=== PATIENT | male | born 1990 | race Caucasian/White ===

== ENCOUNTER 2018-12-08 18:45 | Emergency (ER) | payer BC ==
[~2018-12-08] VITALS: Ht 175.3 cm; Wt 80.7 kg
[2018-12-08 19:13] VITALS: BP 130/65; Ht 175.3 cm; Wt 80.7 kg
== END 2018-12-08 20:43 | disposition home or self-care (01) ==
LOC: ED 18:45
DX: S33.5XXA Sprain of ligaments of lumbar spine, initial encounter (principal); Z98.890 Other specified postprocedural states; X50.0XXA Overexertion from strenuous movement or load, initial encounter; Y93.89 Activity, other specified; Y92.89 Other specified places as the place of occurrence of the external cause; Y99.8 Other external cause status
CPT/HCPCS: J1885

== ENCOUNTER 2019-03-31 14:05 | Emergency (ER) | payer BC ==
[~2019-03-31] VITALS: Ht 175.3 cm; Wt 81.6 kg
[2019-03-31 14:19] VITALS: Ht 175.3 cm; Wt 81.6 kg
[2019-03-31 16:11] VITALS: BP 120/79
== END 2019-03-31 16:11 | disposition home or self-care (01) ==
LOC: ED 14:05
DX: S92.422A Displaced fracture of distal phalanx of left great toe, initial encounter for closed fracture (principal); X58.XXXA Exposure to other specified factors, initial encounter; Y93.89 Activity, other specified; Y92.89 Other specified places as the place of occurrence of the external cause; Y99.8 Other external cause status

== ENCOUNTER 2019-09-10 11:03 | Emergency (ER) | payer BC, SELFPAY ==
[~2019-09-10] VITALS: Ht 175.3 cm; Wt 77.1 kg
[2019-09-10 11:07] VITALS: BP 122/74; Ht 175.3 cm; Wt 77.1 kg
== END 2019-09-10 11:37 | disposition home or self-care (01) ==
LOC: ED 11:03
DX: B34.9 Viral infection, unspecified (principal); Z20.828 Contact with and (suspected) exposure to other viral communicable diseases
CPT/HCPCS: U0003-CS